=== PATIENT | female | born 1955 | race Caucasian/White ===

== ENCOUNTER 2019-06-10 10:09 | Outpatient (CLI) | payer MEDICARE ==
--- NOTE | 2019-06-10 11:22 | SLEEP CARE CONSULTATION ---
Information from patient questionnaire entered by Alem Leon. I have reviewed and concur with the information entered by Alem Leon. This document represents the service I personally performed and the decisions made by me, Kehinde Sumner MD, [facility]. History of Present Illness Reason for Visit: New patient Chief Complaint: reports: Unrefreshed sleep, Fatigue, Frequent awakenings at night Duration of Symptoms: 20+ YEARS Usual bedtime: 2100 Time it takes to fall asleep: 10-15 MINUTES Snores at night: Yes Observed to quit breathing while asleep: Yes Sleeps alone due to snoring: No Number of times waking at night: 3-4 Reasons for waking at night: reports: Pain, Bathroom Toss, Turn, or Twitch while sleeping: Yes Recalls having dreams: Yes Usually gets out of bed at: [id number] Feels refreshed in the morning: No Morning headache: Yes (SOMETIMES) Sleepy or fatigued during the day: Yes Ever fallen asleep while driving: No Takes day naps: No Dreams during day naps: No Prior sleep studies: Yes Year and Where: 01/2014 [facility] SLEEP STUDY, [facility] Additional HPI information: I had the pleasure of seeing Ms. Hernandez today regarding obstructive sleep apnea-hypopnea. As you know, she is a 64 year old lady who was diagnosed with the sleep-disordered breathing at [facility] [place] about 15 years. She had more studies at [facility] No reports are available. She has an autoCPAP device set at 5 15 cmH2O. She uses every night and all night. The compliance data show usage in 175 out of the past 180 nights, a veraging 7 hours a night. The residual AHI is 2.6 and average air leak is 6 seconds a night. She wears a ResMed N-20 nasal mask. She gets her supplies from [facility]. She finds the treatment very helpful and would like to continue with it. CPAP Compliance Data - Data Reviewed with Patient Average duration of nightly device use: 6H 50M Compliance rate %: 87.2 Current pressure setting (cmH2O): 5-15 Humidity setting: OFF Subjective Initial Culbertson Sleepiness Scale score: 9 Past Medical History Past Medical History: reports: Hypothyroidism Social History The patient's occupation is RETIRED. Patient is and lives in [place]. Have you smoked in the past 12 months: No Alcohol use: Yes Alcohol amount and frequency: 3-5 DRINKS/WEEK Family History Family history of sleep disordered breathing: No Allergies and Home Medications Drug allergies reviewed: Yes Home medication list reviewed: Yes Review of Systems Weight loss over past 5 years: 20 Cardiovascular: denies: high blood pressure, palpitations, chest pain, irregular heart rate or pulse, leg or foot swelling, have to sleep sitting up, other Respiratory: denies: shortness of breath, wheeze, sputum production, chronic cough, other Gastrointestinal: reports: abdominal pain Urinary: reports: frequency Neurological: denies: headaches, seizure, head trauma, disorientation, speech dysfunction, gait or balance problems, fainting or unconsciousness, other Psychiatric: denies: Attention Deficit Hyperactivity, anxiety, depression, mood disorder, claustrophobia, other Ear/Nose/Throat: reports: nasal congestion Endocrine: reports: sluggishness Musculoskeletal: reports: joint pain, back pain Immunologic: denies: sneezing, rash, itching, allergies to food or environment, other Physical Exam Vital signs obtained and entered by: Dr. Sumner Blood Pressure: 140/80 Cuff size: long Heart Rate: 67 O2 Saturation: 98 Height: 5 ft 4 in Weight (kg): 161 lb Body Mass Index: 27.6 BMI Classification: Overweight Neck circumference: 15 Mood/affect: normal HEENT: No craniofacial malformation Nostrils: patent to airflow Turbinates: normal Septum: midline Mouth and throat: narrow oropharynx Soft palate: long Hard palate: normal Uvula: normal Uvula visualization: 25% Mallampati Class III Tongue: enlarged in size with teeth lim on lateral edges Tonsils: small Chin and jaw: normal size and position Neck: normal w/o lymphadenopathy or thyromegaly Heart: regular rate and rhythm Lungs: clear bilaterally Abdomen: soft Extremities: no edema or clubbing Neurologic: intact Impression and Plan IMPRESSION: 1. Obstructive Sleep Apnea-Hypopnea Syndrome, of unknown severity. The patient has had good treatment compliance. The current pressure setting appears effective and comfortable. The patient experiences improvement on the treatment. She is now on Medicare and will need a new prescription for supplies. Because the CPAP is also now older than the useful life of 5 years, I will order the patient a new one and make it an autoCPAP set between 5 and 10 cmH2O. Plan: 1. Prescription made for an autoCPAP, heated humidifier, and related supplies. 2. Repeat polysomnography if required by Medicare. 3. Return for follow up after one month on the new machine. I spent 100% of this 15 minute visit face to face with the patient with greater than 50% of this was spent time counseling the patient and coordination of care.
[2019-06-10 11:23] VITALS: BP 140/80
== END 2019-06-10 10:10 | disposition home or self-care (01) ==
LOC: SC 10:09
PROVIDERS: ATTEND Internal Medicine Pulmonary Disease
DX: G47.33 Obstructive sleep apnea (adult) (pediatric) (principal)
CPT/HCPCS: 99203; G0463; 99212

== ENCOUNTER 2021-02-08 13:15 | Outpatient (CLI) | payer MEDICARE ==
--- NOTE | 2021-02-16 12:19 | Mammography Report ---
BILATERAL DIGITAL SCREENING MAMMOGRAM 3D/2D: 02/08/2021 CLINICAL: Routine screening. No prior exams were available for comparison. There are scattered fibroglandular elements in both br easts. Reporting delay due to awaiting outside images for comparison. No significant masses, calcifications, or other findings are seen in either breast. IMPRESSION: NEGATIVE There is no mammographic evidence of malignancy. A 1 year screening mammogram is recommended. This exam was interpreted at Station ID: [id number]. NOTE: For mammograms, a report in lay terms will be sent to the patient. Approximately 15% of breast malignancies will not be visualized mammographically. In the management of a palpable breast mass, a negative mammogram must not discourage biopsy of a clinically suspicious lesion. Electronically Signed By: North Wong M.D. [email or web address]:02/15/2021 09:29:19 ACR BI-RADS Category 1: Negative 3341F PARENCHYMAL PATTERN: (A) - The breast(s) demonstrate(s) scattered fibroglandular densities. BI-RADS CATEGORY: (1) - 1 RECOMMENDATION: (ANNUAL) - Recommend routine annual screening mammography. [id number] 1 year screening LATERALITY: (B)
== END 2021-02-08 13:16 | disposition home or self-care (01) ==
LOC: DI.S 13:15
DX: Z12.31 Encounter for screening mammogram for malignant neoplasm of breast (principal)

== ENCOUNTER 2021-04-09 15:19 | Outpatient (CLI) | payer MEDICARE ==
--- NOTE | 2021-04-09 18:03 | DEXA Report ---
PROCEDURE: Dexa Spine and/or Hip INDICATIONS: SCREENING FOR OSTEOPOROSIS, POST MENOPAUSAL TECHNIQUE: Dual energy x-ray absorptiometry (DXA) was performed on a LifeBook System. Regions measur ed are the AP Spine, femoral neck, and if needed forearm. COMPARISON: None. FINDINGS: Lumbar Spine: Bone Mineral Density 0.972 g/cm/cm,T score -1.7, osteopenia Left Hip: Bone Mineral Density 0.914 g/cm/cm,T score -0.7, normal Left Femoral Neck: Bone Mineral Density 0.834 g/cm/cm, T score -1.5, osteopenia (T score greater or equal to -1.0: NORMAL) (T score from -1.1 to -2.4: OSTEOPENIA) (T score less than or equal to -2.5 to: OSTEOPOROSIS) Impression: Osteopenia at the lumbosacral spine and left femoral neck, normal bone mineral density of the left hip overall. Patients with diagnosis of osteoporosis or osteopenia should have regular bone mineral density assess ment. For those eligible for Medicare, routine testing is allowed once every 2 years. Testing frequ ency can be increased for patients who have rapidly progressing disease or for those who are receivin g medical therapy to restore bone mass. Reviewed by: Alonso Bose MD on 04/09/2021 6:02 PM PDT Approved by: Alonso Bose MD on 04/09/2021 6:02 PM PDT Station ID: [id number]
== END 2021-04-09 15:20 | disposition home or self-care (01) ==
LOC: DI 15:19
PROVIDERS: ATTEND Family Medicine
DX: Z13.820 Encounter for screening for osteoporosis (principal); M85.89 Other specified disorders of bone density and structure, multiple sites; Z78.0 Asymptomatic menopausal state

== ENCOUNTER 2024-04-25 08:00 | Outpatient (CLI) | payer MEDICARE, OTHER | END 2024-04-25 23:59 | disposition home or self-care (01) | LOC: LAB.S 08:00 | PROVIDERS: ATTEND Registered Nurse | DX: R82.79 Other abnormal findings on microbiological examination of urine (principal); R10.9 Unspecified abdominal pain | CPT/HCPCS: 87086 ==